=== PATIENT | male | born 1985 | race American Indian/Alaskan Native ===

== ENCOUNTER 2018-11-11 06:31 | Emergency (ER) | payer OTHER ==
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
--- NOTE | 2018-11-11 07:11 | XRay Report ---
FINAL REPORT EXAM: XR ANKLE 3+V LT HISTORY: ankle injury, sprain TECHNIQUE: Three views of the left ankle were submitted. FINDINGS: There is soft tissue swelling overlying the lateral malleolus. The ankle mortise is well maintained. There is no evidence of fracture. IMPRESSION: Lateral soft tissue swelling. No fracture or dislocation.
[2018-11-11 09:09] VITALS: BP 145/78
== END 2018-11-11 10:18 | disposition home or self-care (01) ==
LOC: ED 06:31
DX: S93.402A Sprain of unspecified ligament of left ankle, initial encounter (principal); F17.200 Nicotine dependence, unspecified, uncomplicated; Z88.6 Allergy status to analgesic agent; X50.1XXA Overexertion from prolonged static or awkward postures, initial encounter; Y93.02 Activity, running; Y99.8 Other external cause status; Y92.89 Other specified places as the place of occurrence of the external cause
CPT/HCPCS: 99283

== ENCOUNTER 2019-06-21 08:09 | Emergency (ER) | payer SELFPAY ==
[2019-06-21 08:17] VITALS: BP 131/83
[2019-06-21] MEDS ORDERED: ROCEPHIN IM ONE (08:28)
[2019-06-21] MEDS ORDERED: XYLOCAINE 1% MPF 5 mL INFILTRATI ONE (08:28)
[2019-06-21] MEDS ORDERED: ZITHROMAX PO ONE (08:29)
--- NOTE | 2019-06-21 08:34 | Emergency Department Report ---
ED Male HPI - General Chief complaint: Urogenital-Male Stated complaint: STD CHECK Time Seen by Provider: 06/21/19 08:25 Source: patient Mode of arrival: Ambulatory Limitations: No Limitations - History of Present Illness Initial comments: Patient is 34 years old male with no significant past medical history. Patient presented to the ER complaining of penile discharge, whitish in color started this morning. Patient stated that he slept with a new girlfriend last week and she thought that she has had gonorrhea. Patient denied any fever or chills. He denied nausea vomiting or diarrhea. MD Complaint: penile discharge, dysuria -: This morning Location: penis Radiation: none Severity: moderate Quality: burning, sharp - Related Data Allergies Allergy/AdvReac Type Severity Reaction Status Date / Time ibuprofen Allergy Shortness Verified 11/11/18 06:45 of Breath ED Review of Systems ROS: Stated complaint: STD CHECK Other details as noted in HPI Comment: All other systems reviewed and negative Constitutional: denies: chills, fever Respiratory: denies: cough, shortness of breath, SOB with exertion Cardiovascular: denies: chest pain Gastrointestinal: denies: abdominal pain, nausea, vomiting, diarrhea, constipation, hematemesis, melena, hematochezia Musculoskeletal: denies: back pain Neurological: denies: headache, weakness ED Past Medical Hx - Past Medical History Previous Medical History?: No - Surgical History Past Surgical History?: No Hx Appendectomy: No - Social History Smoking Status: Never Smoker Substance Use Type: None ED Physical Exam - General Limitations: No Limitations General appearance: alert, in no apparent distress - Head Head exam: Present: atraumatic, normocephalic, normal inspection - Eye Eye exam: Present: normal appearance, PERRL - ENT ENT exam: Present: normal exam, normal orophraynx, mucous membranes moist - Neck Neck exam: Present: normal inspection, full ROM. Absent: tenderness, meningismus, lymphadenopathy, thyromegaly - Respiratory Respiratory exam: Present: normal lung sounds bilaterally - Cardiovascular Cardiovascular Exam: Present: regular rate, normal rhythm, normal heart sounds - GI/Abdominal GI/Abdominal exam: Present: soft, normal bowel sounds. Absent: distended, tenderness, guarding, rebound, rigid, mass, bruit, pulsatile mass, hernia - Extremities Exam Extremities exam: Present: normal inspection, full ROM, normal capillary refill. Absent: tenderness, calf tenderness - Back Exam Back exam: Present: normal inspection, full ROM. Absent: CVA tenderness (R), CVA tenderness (L), muscle spasm, paraspinal tenderness, vertebral tenderness, rash noted - Neurological Exam Neurological exam: Present: alert, oriented X3, CN II-XII intact, normal gait, reflexes normal - Psychiatric Psychiatric exam: Present: normal mood - Skin Skin exam: Present: warm, intact, normal color ED Course Vital Signs 06/21/19 08:15 Temperature 97.8 F Pulse Rate 98 H Respiratory 16 Rate Blood Pressure 131/83 [Left] O2 Sat by Pulse 96 Oximetry ED Medical Decision Making - Medical Decision Making Patient received Rocephin 250 mg IM and Zithromax 1 g by mouth. Critical care attestation.: If time is entered above; I have spent that time in minutes in the direct care of this critically ill patient, excluding procedure time. ED Disposition Clinical Impression: Penile discharge, STD (male) Disposition: - TO HOME OR SELFCARE Is pt being admited?: No Condition: Stable Instructions: Safe Sex (ED), Sexually Transmitted Diseases (ED) Referrals: PRIMARY CARE, [Primary Care Provider] - 3-5 Days
[2019-06-21 10:05] LABS: Bacteria,Urine 1+ /HPF (Negative); Bilirubin,Urine NEG (Negative); Blood,Urine SM (Negative); Color,Urine Yellow (Yellow); Mucus,Urine 1+ /HPF; Protein,Urine <15 mg/dL mg/dL (Negative); Urobilinogen,Urine < 2.0 mg/dL (<2.0)
[2019-06-21 10:06] LABS: WBC,Urine > 182.0 /HPF (0.0-6.0)
== END 2019-06-21 09:45 | disposition home or self-care (01) ==
LOC: ED 08:09
DX: A64 Unspecified sexually transmitted disease (principal); Z88.6 Allergy status to analgesic agent
CPT/HCPCS: 81001; 87591; 96372; 99283; J0696

== ENCOUNTER 2020-01-25 04:58 | Emergency (ER) | payer SELFPAY ==
[2020-01-25] MEDS ORDERED: ACETAMINOPHEN 325 MG TAB PO ONE (05:35)
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
[2020-01-25] MEDS ORDERED: LIDOCAINE-MPF (1%) 10 MG/1 ML VIAL 5 ML INFILTRATI ONE (05:36)
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
[2020-01-25 06:53] VITALS: BP 156/90
== END 2020-01-25 06:56 | disposition home or self-care (01) ==
LOC: ED 04:58
DX: S01.91XA Laceration without foreign body of unspecified part of head, initial encounter (principal); Z88.6 Allergy status to analgesic agent; X95.9XXA Assault by unspecified firearm discharge, initial encounter; Y93.89 Activity, other specified; Y92.89 Other specified places as the place of occurrence of the external cause; Y99.8 Other external cause status
CPT/HCPCS: 70450; 99283